=== PATIENT | male | born 1950 | race Hispanic/Latino ===

== ENCOUNTER → 2019-02-15 | Outpatient (CLI) | payer OTHER | END | disposition home or self-care (01) | LOC: OIH 12:19 | PROVIDERS: ATTEND Internal Medicine Cardiovascular Disease | DX: Z13.6 Encounter for screening for cardiovascular disorders (principal) | CPT/HCPCS: 75571 ==

== ENCOUNTER 2019-03-14 08:20 | Observation (INO) | payer OTHER ==
[2019-03-09 09:26] VITALS: BP 150/80
[2019-03-09 09:39] LABS: APPEARANCE,URINE Clear (CLEAR); BASOPHILS % (AUTO) 0.3 % (0.0-5.0); BILIRUBIN,URINE Negative (NEGATIVE); COLOR,URINE Yellow (YELLOW); GLUCOSE, URINE (UA) >=1000 mg/dL (NEGATIVE); HEMATOCRIT 41.4 % (42-54); KETONES,URINE Negative (NEGATIVE); LEUKOCYTE ESTERASE ,URINE Negative (NEGATIVE); MEAN CORPUSCULAR HEMOGLOBIN 32.2 pg (27.0-33.0); MEAN CORPUSCULAR HGB CONC 34.2 g/dL (32.0-36.0); MEAN CORPUSCULAR VOLUME 94.1 fL (79-99); MONOCYTES % (AUTO) 7.6 % (3.0-13.0); NEUTROPHILS % (AUTO) 64.1 % (40.0-77.0); NITRATE,URINE Negative (NEGATIVE); OCCULT BLOOD,URINE Negative (NEGATIVE); PH,URINE 5.5 (5.0-8.0); PLATELET COUNT (AUTO) 145 K/uL (130-400); PROTEIN,URINE Negative (NEGATIVE); RED CELL DISTRIBUTION WIDTH 13.4 % (11.0-15.5); WHITE BLOOD COUNT (AUTO) 5.5 K/uL (4.8-10.8)
[2019-03-09 09:49] LABS: RBC,URINE 0-1 /HPF (0-1)
[2019-03-09 09:50] LABS: BACTERIA,URINE Rare /HPF (None Seen); MUCUS,URINE Many LPF (None Seen); SQUAMOUS EPITHELIAL CELL,UR Rare /HPF (0-2); WBC,URINE 0-1 /HPF (0-1)
[2019-03-09 09:53] LABS: INR 0.96 (0.85-1.15); PARTIAL THROMBOPLASTIN TIME 31.4 SEC (26.3-35.5); PROTHROMBIN TIME 10.1 SEC (9.6-11.6)
[2019-03-09 10:04] LABS: CREATININE 0.8 mg/dL (0.5-1.5); POTASSIUM 4.3 mmol/L (3.5-5.1)
[~2019-03-14] VITALS: Ht 175.3 cm; Wt 112.0 kg
[2019-03-14] VITALS (10 sets, daily range): BP systolic 133–154; BP diastolic 57–83
[~2019-03-14 08:20] MED LIST: ALLO100T PO; ATOR40TA69 PO; CHOL200013 PO; CYAN100099 PO; DOCU240C25 PO; GABA-533 PO; GLIP5TAB11 PO; LEVO50TA11 PO; LORA10TA7 PO; LOSA50TA64 PO; MELO-108 PO; METF-444 PO; MONT10TA24 PO; VENL75TA63 PO
[2019-03-14] MEDS ORDERED: SODIUM CHLORIDE 0.9% 1000ML 1,000 ML IV ONE ×2 (08:39→08:40)
--- NOTE | 2019-03-14 09:59 | NUR ---
ABNORMAL LAB DR. ORR AWARE OF BLOOD SUGAR BEING ELEVATED, NO ORDERS AT THIS TIME.
[2019-03-14] MEDS ORDERED: IOHEXOL-350 50ML VIAL IV ONE ×2 (11:33→12:13)
[2019-03-14] MEDS ORDERED: IOHEXOL 350 MG/ML 100ML INFUS..BTL IV ONE (11:33)
[2019-03-14] MEDS ORDERED: NITROGLYCERIN 5 MG/ML 10 ML VIAL IV ONE (11:33)
[2019-03-14] MEDS ORDERED: LIDOCAINE HCL 2% 20ML ONE (11:33)
[2019-03-14] MEDS ORDERED: SODIUM BICARB 50MEQ 50ML VIAL ONE (11:33)
[2019-03-14] MEDS ORDERED: HEPARIN SODIUM 1000UNIT/ML 10ML VIAL ONE (11:57)
[2019-03-14] MEDS ORDERED: IOHEXOL-350 75 ML VIAL IV ONE (12:07)
[2019-03-14] MEDS ORDERED: ASPIRIN 325MG EC TAB 325 MG TABLET.DR PO ONE (12:21)
[2019-03-14] MEDS ORDERED: CLOPIDOGREL BISULFATE 300 MG TAB ONE (12:21)
[2019-03-14] MEDS: SODIUM CHLORIDE 0.9% 1000ML 1,000 ML IV SCH ×2 (12:33→21:26)
[2019-03-14] MEDS ORDERED: ONDANSETRON HCL 4 MG/2 ML VIAL IVP PRN (12:45)
[2019-03-14] MEDS ORDERED: GLUCAGON 1MG KIT 1 MG ML IM PRN (12:45)
[2019-03-14] MEDS ORDERED: DEXTROSE 50%-WATER 50 ML DISP.SYRIN IV PRN (12:45)
[2019-03-14] MEDS ORDERED: ACETAMINOPHEN-CODEINE 300/30MG TAB PO PRN ×2 (12:45)
[2019-03-14] MEDS ORDERED: CLOPIDOGREL BISULFATE 300 MG TAB PO SCH (12:45)
[2019-03-14] MEDS: GABAPENTIN 100 MG CAPSULE PO SCH ×2 (15:33→21:12)
[2019-03-14] MEDS: INSULIN HUMULIN R 100 UNIT/ML 3ML SQ SCH ×2 (17:31→21:23)
[2019-03-14] MEDS ORDERED: DOCUSATE CALCIUM 240 MG CAP PO SCH (21:00)
[2019-03-14] MEDS ORDERED: ALPRAZOLAM 0.5 MG TABLET PO ONE (21:00)
[2019-03-14] MEDS ORDERED: MELOXICAM 7.5 MG TABLET PO SCH (21:00)
[2019-03-14] MEDS: GLIPIZIDE 5 MG TABLET PO SCH (21:14)
[2019-03-15] VITALS: BP 135/77
[2019-03-15 04:16] LABS: HEMATOCRIT 39.3 % (42-54); MEAN CORPUSCULAR HEMOGLOBIN 31.9 pg (27.0-33.0); MEAN CORPUSCULAR HGB CONC 33.8 g/dL (32.0-36.0); MEAN CORPUSCULAR VOLUME 94.2 fL (79-99); PLATELET COUNT (AUTO) 139 K/uL (130-400); RED BLOOD CELL COUNT(AUTO) 4.17 MIL/uL (4.50-6.20); RED CELL DISTRIBUTION WIDTH 13.4 % (11.0-15.5)
[2019-03-15 04:27] LABS: CREATININE 0.8 mg/dL (0.5-1.5); POTASSIUM 3.9 mmol/L (3.5-5.1)
[2019-03-15 05:15] VITALS: BP 151/69
[2019-03-15] MEDS ORDERED: LEVOTHYROXINE 50 MCG TABLET PO SCH (06:30)
[2019-03-15] MEDS: INSULIN HUMULIN R 100 UNIT/ML 3ML SQ SCH ×2 (06:31→11:30)
[2019-03-15 07:44] VITALS: BP 146/73
--- NOTE | 2019-03-15 08:30 | NUR ---
AM ASSESSMENT PT LAYING IN BED, HOB ELEVATED 30 DEGREES, WATCHING TV. SPOUSE @ BEDSIDE. A/O X 3. NO SOB. NO DISTRESS NOTED. DENIES CHEST PAIN OR DISCOMFORT. DENIES PALPITATIONS. DENIES INCISIONAL PAIN. TELE: SR 60s. DENIES N/V AND/OR DIARRHEA. RT GROIN DSG DRY & INTACT. PUNCTURE SITE SOFT, NON-TENDER. NO BLEEDING, NO HEMATOMA NOTED. (+) BILATERAL PEDAL PULSES. BLE PINK & WARM TO TOUCH. UP AD PATRICK. INSTRUCTED TO CALL FOR ASSISTANCE. CALL RENETTA W/IN REACH.
[2019-03-15] MEDS ORDERED: VENLAFAXINE HCL 75 MG TAB PO SCH (09:00)
[2019-03-15] MEDS ORDERED: METOPROLOL TARTRATE 25 MG TAB PO SCH (09:00)
[2019-03-15] MEDS ORDERED: ASPIRIN 81MG TAB.CHEW PO SCH (09:00)
[2019-03-15] MEDS ORDERED: LORATADINE 10 MG TABLET PO SCH (09:00)
[2019-03-15] MEDS ORDERED: LOSARTAN 50 MG TABLET PO SCH (09:00)
[2019-03-15] MEDS ORDERED: ATORVASTATIN CALCIUM 40 MG TABLET PO SCH (09:00)
[2019-03-15] MEDS ORDERED: CYANOCOBALAMIN (VITAMIN B-12) 1,000 MCG TABLET PO SCH (09:00)
[2019-03-15] MEDS ORDERED: Cholecalciferol (Vitamin D3) (Vitamin D3) 2,000 UNIT PO SCH (09:00)
[2019-03-15] MEDS ORDERED: ALLOPURINOL 100 MG TABLET PO SCH (09:00)
[2019-03-15] MEDS ORDERED: CLOPIDOGREL BISULFATE 75 MG TAB PO SCH (09:00)
[2019-03-15] MEDS ORDERED: MONTELUKAST SODIUM 10 MG TAB PO SCH (09:00)
[2019-03-15] MEDS: GABAPENTIN 100 MG CAPSULE PO SCH ×2 (09:20→14:00)
[2019-03-15] MEDS: GLIPIZIDE 5 MG TABLET PO SCH (09:21)
[2019-03-15 11:43] VITALS: BP 153/85
--- NOTE | 2019-03-15 13:40 | NUR ---
DISCHARGE VERBAL & WRITTEN DISCHARGE INSTRUCTIONS REVIEWED & GIVEN TO PT & SPOUSE. QUESTIONS ENCOURAGED & CLARIFIED. PROPER CARE & ACTIVITY AFTER LEFT HEART CATH W/STENT REVIEWED. NEW PRESCRIBED MEDICATIONS REVIEWED. PRESCRIPTION GIVEN TO PT; SIGNED COPY PLACED IN CHART. PT TO CONTINUE HOME MEDICATIONS. F/UP APPT INFORMATION REVIEWED. TELE MARSHA REMOVED. IV DISCONTINUED. PT & SPOUSE TO GATHER PERSONAL BELONGINGS. WILL NOTIFY STAFF WHEN READY TO BE TAKEN TO PRIVATE VEHICLE.
--- NOTE | 2019-03-15 14:10 | NUR ---
DISCHARGE PT TAKEN TO PRIVATE VEHICLE VIA WC BY Walter KHAN PCP, ACCOMPANIED BY SPOUSE. NO DISTRESS NOTED.
== END 2019-03-15 14:10 | disposition home or self-care (01) ==
LOC: DAH 08:20 → DAHIP 08:21 → DAH 08:21 → 2DH 13:25
PROVIDERS: ADMIT Internal Medicine; ATTEND Internal Medicine
DX: I25.119 Atherosclerotic heart disease of native coronary artery with unspecified angina pectoris (principal); I10 Essential (primary) hypertension; E78.5 Hyperlipidemia, unspecified; E11.9 Type 2 diabetes mellitus without complications; E66.9 Obesity, unspecified; E03.9 Hypothyroidism, unspecified; Z96.651 Presence of right artificial knee joint; Z79.899 Other long term (current) drug therapy; Z79.01 Long term (current) use of anticoagulants
CPT/HCPCS: 36415 ×2; 71045; 80048 ×2; 80061; 81001; 82948 ×5; 85025; 85027; 85610; 85730; 93005; 93458; 96372; A4606; C1760; C1769; C1874; C1887; C1894; C9600; G0378 ×22; J1644 ×2; J1815 ×2; J3490 ×3; J7030 ×3; Q9965; Q9967 ×2